=== PATIENT | female | born 1975 | race Caucasian/White ===

== ENCOUNTER 2021-11-05 14:35 | Emergency (ER) | payer OTHER, BC, SELFPAY ==
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
[2021-11-05 14:38] VITALS: BP 111/66; PULSE 92; RESP 18; TEMP 36.8; O2SAT 99
[2021-11-05] MEDS: KETOROLAC 30 MG/ML VIAL (*BKC) IV PUSH (15:38)
[2021-11-05 15:46] VITALS: BP 124/71; PULSE 69; RESP 18; O2SAT 98
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
[2021-11-05 17:24] VITALS: BP 124/73; PULSE 79; RESP 18; O2SAT 100
== END 2021-11-05 17:26 | disposition home or self-care (01) ==
PROVIDERS: Emergency Provider Emergency Medicine; PCP Internal Medicine
DX: S16.1XXA Strain of muscle, fascia and tendon at neck level, initial encounter (principal); S39.012A Strain of muscle, fascia and tendon of lower back, initial encounter; V43.52XA Car driver injured in collision with other type car in traffic accident, initial encounter
CPT/HCPCS: 72100; 72125; 96374; 99284; J1885

== ENCOUNTER 2022-02-10 09:04 | Outpatient (CLI) | payer OTHER, BC, SELFPAY ==
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
== END 2022-02-10 09:05 ==
PROVIDERS: PCP Internal Medicine; Visit Provider Internal Medicine
DX: M19.012 Primary osteoarthritis, left shoulder (principal); M75.52 Bursitis of left shoulder; M75.22 Bicipital tendinitis, left shoulder
CPT/HCPCS: 73221

== ENCOUNTER 2022-11-19 00:32 | Day surgery (SDC) | payer BC, SELFPAY ==
[2022-11-13 13:17] VITALS: BMI 24.5
--- NOTE | 2022-11-13 13:24 | PC.NURSE ---
Report to the Outpatient Waiting Room, entrance under the green pavilion located off [facility], at time _1130 on date _11/19/22_. Planned Procedure Time: _1330_. Time changes happen often and if your time is changed the preop area will call you the afternoon before. - You and your visitor will be asked to self-screen and do not enter if you have any COVID symptoms. - A mask is optional within the hospital at this time. Patients may have clear liquids (water, carbonated beverages, clear teas, apple juice) until 3 hours prior to surgery with a maximum of 20 ounces. - No food from midnight until time of surgery - Infants may have breast milk until 4 hours before surgery, formula 6 hours prior to surgery. - Children will be allowed to drink immediately following surgery. If applicable, please bring a bottle or sippy cup to assist with drinking. Juice, water, soda, and popsicles are readily available. For infants on formula, please bring formula the day of surgery. Pacifiers are allowed. Take the following medications with a SIP of water the morning of surgery: ___NONE DO NOT STOP ANY OF YOUR OTHER PRESCRIPTION MEDICATIONS PRIOR TO SURGERY ?EXCEPT THE FOLLOWING Medications to discontinue per physician NONE Date to take last dose Please no make-up, nail macedonian, hairspray, perfume, deodorant, or body powder the day of surgery. No jewelry (including any body piercings) or valuables the day of surgery, leave them at home. Please take a shower or bath the night before, or the morning of, surgery with an antibacterial soap. Wear comfortable, loose fitting clothing. Children are encouraged to wear pajamas. - Jewelry must be removed prior to entering the operating room. Rings and piercings that are not removed may be cut off. - The hospital will not accept responsibility for valuables. - Please leave all valuables, including medications, at home the day of surgery. If you are going home after surgery, a licensed motorcycle delivery driver must drive you home. - NO public transportation without another adult if you receive anesthesia. - We recommend that an adult stay with you for 24 hours following discharge. - We also recommend that you do not drive, make important decision, drink alcoholic beverages, or take any drugs that were not prescribed by your health care provider for at least 24 hours after your discharge time. For Pediatric surgeries, we recommend two adults accompany the child home. Follow any additional instructions given to you from your surgeon. If you or anyone in your household have experienced Covid symptoms in the past week, please notify your surgeon or the nurse liaison at the phone number below for possible testing. Telephone instructions given to _NILE _and asked if any additional questions and then verbalized understanding. Patient advised to call surgeon office or pre surgery nurse liaison [phone] if any additional questions.
[2022-11-19] MEDS: ACETAMINOPHEN 500 MG TABLET 1000 MG PO (12:25)
[2022-11-19] MEDS: KETOROLAC 15 MG/ML VIAL (*BKC) IV PUSH (12:25)
[2022-11-19 12:46] VITALS: BP 120/73; PULSE 70; RESP 14; TEMP 36.1; O2SAT 99
--- NOTE | 2022-11-19 12:58 | WPDHPUPDATE1 ---
History and Physical Update Update Date/Time: 11/19/22 12:58 History and Physical has been reviewed, including an updated exam of the patient. There are NO changes in the patient's condition. Risks, benefits, and alternatives have been discussed and questions answered. Patient agrees to proceed with procedure.
--- NOTE | 2022-11-19 13:19 | WPDANESEPPF ---
Anes - Initial Pre Proc Eval Procedure: Operation Date: 11/19/22 13:30 Proposed Procedures p Left Distal Clavicle Excision - Ricardo Field MD Date/Time: 11/19/22 13:19 Surgeon: Ricardo Field MD Pre Op Diagnosis: left ac arthritis Patient Data Age: 47 Gender: F Height: 1.7 m Weight: 69.3 kg Last Vital Signs Temp 36.1 C L 11/19/22 12:46 Pulse 70 11/19/22 12:46 Resp 14 11/19/22 12:46 BP 120/73 11/19/22 12:46 Pulse Ox 99 11/19/22 12:46 O2 Del Method Room Air 11/19/22 12:46 Allergies Allergy/AdvReac Type Severity Reaction Status Date / Time No Known Allergies Allergy Verified 11/19/22 12:53 Home Medications Medication Instructions Recorded Confirmed Type paroxetine HCl 12.5 mg 12.5 mg PO QAM 05/02/22 11/13/22 History tablet,extended release 24 hr (Paxil CR) Patient hx anesthesia problems: none Family hx anesthesia problems: none Results Review: All pre-operative results and documents have been reviewed as part of the pre-operative evaluation. [facility] Past Medical History Medical History (Updated 11/19/22 @ 13:19 by Tee Mora DO) Allergies Anxiety Derangement of left acromioclavicular joint Psoriasis Surgical History Surgical History (Updated 11/19/22 @ 13:19 by Tee Mora DO) History of foot surgery History of tonsillectomy Family History Family History Father Alcoholism Depression Grandparent Alcoholism Asthma Heart disease Other Cancer Social History Social History Smoking packs per day: 0.5 Smoking cigarettes per day: 10.0 Years smoked: 15 Smoking pack-years: 7.50 Smoking status: Former smoker Tobacco type: cigarettes Alcohol intake: never Substance use: never Substance use type: marijuana Other substance usage details: DAILY Lack of Transportation: No Lack of Food: Never True Current Housing: I Have Housing Concerned About Future Housing: No Difficulty Paying Gas/Electric Bills: No Difficulty Paying for Meds: No Currently Unemployed: No Education: Master's Degree or Higher Difficulty w/ Childcare or Family Care: No Living arrangements: with family Occupation/Education: occupation 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 Informed Consent: The patient's anesthetic plan and its attendant risks and benefits were discussed with the patient/family/POA. Questions were solicited and answers provided to the satisfaction of the patient/family/POA.
--- NOTE | 2022-11-19 14:31 | WPDANESPNB ---
Anes - Peripheral Nerve Block Date/Time: 11/19/22 14:31 I have discussed with the patient/family/POA the placement of a peripheral nerve block for post-operative pain management, including associated risks, benefits, complications, and side effects. Alternative methods of post-operative analgesia were detailed. Questions were solicited and answers provided to the satisfaction of the patient/family/POA. Time-Out: A pre-procedural Time-Out was completed immediately before starting the procedure and confirmed: Patient Identification, Site, Procedure, Patient Position and the Availability of Requisite Equipment. Clinical Indications: Acute post-operative pain management requested by the operative surgeon. Nerve Block Insertion Note Anes-nerve block: interscalene left Patient position: supine Skin prep: chlorhexidine Needle: 22 gauge, stimulating, insulated echogenic needle. Needle length: 50 mm Technique: ultrasound Injectate: bupivacaine 0.5% with epi 5 mcg/ml (30cc- no epi) Observations: tolerated well Complications: none Procedure start time:: 1619 Procedure end time:: 1622
[2022-11-19] MEDS: ceFAZolin 2 GM/D5W 50 ML 2 GM/50 ML BAG IVPB (16:44)
[2022-11-19] MEDS: BUPIVACAINE/EPINEPHRINE 0.5% 50 ML VIAL 10 ML INFILTRATE (17:38)
[2022-11-19 17:51] VITALS: BP 145/63; PULSE 96; RESP 18; TEMP 36.4; O2SAT 100
[2022-11-19] MEDS: LACTATED RINGERS 1,000 ML 30 ML IV CONT ×2 (17:51)
[2022-11-19 18:05] VITALS: BP 119/68; PULSE 91; RESP 20; O2SAT 100
--- NOTE | 2022-11-19 18:06 | P.OP_ITS ---
Procedure Note - Detailed Date of Procedure 11/19/22 Pre-op Diagnosis left ac arthritis Post-op Diagnosis Same Procedure Performed open left shoulder distal clavicle excision Surgeon Ricardo Field MD [employer] Lilian Chavez Anesthesia General and Regional Description of Procedure Patient was identified and proper site identified. In the preop holding area the anesthesia team performed a left upper extremity block. She was then taken to the operating room and transferred to the or table taking care to pad the torso and extremities. After general anesthetic induction and intubation, she was put in a semi beach chair position in the usual manner for a left shoulder procedure. Her head was secured taking care to neither rotate nor extend the head and neck. The[] upper extremity was prepped and draped free in usual sterile fashion. The subcutaneous tissue in the area of the incision was injected with 10 cc of 0.25% Marcaine and epinephrine solution. longitudinal incision was made extending distally over the AC joint an anterior portion the acromion. Subcutaneous tissue sharply dissected full-thickness down to the AC joint. Hemostasis was carried out throughout the procedure. Joint capsule was opened and using the microsagittal saw the last 8 millimeters of clavicle were removed. There was quite a bit of synovitis which was sharply debrided. Hemostasis was carried out. The wound was irrigated with sterile NaCl solution. The capsule was reapproximated with #2 Vicryl suture. Subcutaneous tissue reapproximated with 3-0 Monocryl and then a 4-0 Prolene subcuticular stitches Steri-Strips were used for the skin. Sterile dressing was applied. There were no known intraoperative complications, and perioperative antibiotics were administered. Estimated Blood Loss -5.0 Drains No Packing No Pathology None sent Complications No immediate complications Condition Stable Disposition PACU [facility] Billing Surgery - Charge Forward: Surgery Billing ([id number])
[2022-11-19] MEDS: ONDANSETRON INJ 4 MG/2 ML VIAL IV PUSH (18:10)
[2022-11-19 18:20] VITALS: BP 107/71; PULSE 83; RESP 16; O2SAT 100
[2022-11-19 18:30] VITALS: BP 142/82; PULSE 90; RESP 16
[2022-11-19] MEDS: SCOPOLAMINE 1.5 MG PATCH TRANSDERM (18:48)
[2022-11-19 19:00] VITALS: BP 130/78; PULSE 86
== END 2022-11-19 19:22 | disposition home or self-care (01) ==
PROVIDERS: PCP Internal Medicine; Visit Provider Orthopaedic Surgery
PROC: (CPT 23420; principal; 2022-11-19 13:30)
DX: M19.012 Primary osteoarthritis, left shoulder (principal); G89.18 Other acute postprocedural pain; F41.9 Anxiety disorder, unspecified; F12.90 Cannabis use, unspecified, uncomplicated
CPT/HCPCS: 23120; 64415; A4565; A9270; J0330; J0690; J1100; J1885; J2250; J2405; J2704; J3010; J7120

== ENCOUNTER 2023-03-20 16:11 | Emergency (ER) | payer BC, SELFPAY ==
[2023-03-20 16:23] VITALS: BP 133/76; PULSE 97; RESP 18; TEMP 36.8; O2SAT 100
--- NOTE | 2023-03-20 19:18 | ED.SKABFB ---
HPI - Skin/Abscess/Foreign Bdy General Chief complaint: Skin/Abscess/Foreign Body Stated complaint: abscess on buttock Time Seen by Provider: 03/20/23 18:57 History of Present Illness HPI narrative: This is a 47-year-old female with past medical history of psoriasis and hemorrhoids who presents with a lump that she has noticed after Botox for the past 2 weeks. She states that this feels different than her previous hemorrhoids and was initially painful with just sitting but has become painful with walking. She denies any fevers or throat. She has not noted any drainage, neither bloody nor purulent. She has been trialing hemorrhoid suppositories as well as witch rashard but does not find them to be helping. She has also been taking ibuprofen at night although this is more for her chronic back pain. She rates this as a pain of 8 or 9 out of 10 in severity. Her last bowel movement was this morning she is generally pretty regular denies any constipation or straining. She did note she had some diarrhea a few days ago but attributed this to intake of dairy and has since returned to having normal formed stools. She denies any bloody stools. She does apply topical medication to her psoriasis but does not on immunosuppressive p.o. medication. She does say that she also applies coconut oil to the parts of her skin given the psoriasis. Related Data Home Medications Medication Instructions Recorded Confirmed paroxetine HCl 12.5 mg 12.5 mg PO QAM 05/02/22 01/01/23 tablet,extended release 24 hr (Paxil CR) ibuprofen 200 mg capsule 200 mg PO Q6H PRN 12/05/22 01/01/23 Allergies Allergy/AdvReac Type Severity Reaction Status Date / Time No Known Allergies Allergy Verified 03/20/23 18:45 [facility] Past Medical History Medical History Allergies Anxiety Psoriasis Surgical History Surgical History Derangement of left acromioclavicular joint Open left DCE November 19, 2022 History of foot surgery History of tonsillectomy Family History Family History Father Alcoholism Depression Grandparent Alcoholism Asthma Heart disease Other Cancer Social History Social History Smoking packs per day: 0.5 Smoking cigarettes per day: 10.0 Years smoked: 15 Smoking pack-years: 7.50 Smoking status: Former smoker Tobacco type: cigarettes Alcohol intake: never Substance use: never Substance use type: marijuana Other substance usage details: DAILY Lack of Transportation: No Lack of Food: Never True Current Housing: I Have Housing Concerned About Future Housing: No Difficulty Paying Gas/Electric Bills: No Difficulty Paying for Meds: No Currently Unemployed: No Education: Master's Degree or Higher Difficulty w/ Childcare or Family Care: No Living arrangements: with family Occupation/Education: occupation Additional occupation/education comments: teacher Exam Const: General: healthy appearing, no acute distress and alert Nutritional Appearance: well nourished Orientation/consciousness: patient oriented x3 Limitations: no limitations HENMT: Head: normal to inspection Ears: external ears normal (Gross auditory acuity intact.) Face/Nose/Sinus: Normal external nose present Resp: Effort & Inspection: normal respiratory effort Cardio: Rate: regular rate GI: Inspection: non-distended GI Palp: Yes Soft to palpation Rectal Exam: normal sphincter tone, No Abnormal stool present, No fecal impaction and No hemorrhoids Other: Abscess does not extend to anal verge and rectal exam is normal without evidence of extension into the rectal vault as there is are no palpable masses on rectal exam. Skin: General skin exam: normal color Other: Patient does have scattered le
[2023-03-20] MEDS: HYDROcodone/acetaminophen (*CRX) 5-325 MG TABLET 1 TAB PO (19:47)
[2023-03-20] MEDS: LIDOCAINE HCL 1% LOCAL INJ 10 ML VIAL 5 ML INFILTRATE (19:47)
[2023-03-20 20:15] VITALS: BP 113/70; PULSE 69; RESP 16; O2SAT 100
== END 2023-03-20 20:17 | disposition home or self-care (01) ==
PROVIDERS: Emergency Provider Student in an Organized Health Care Education/Training Program; PCP Internal Medicine
DX: L05.01 Pilonidal cyst with abscess (principal); Z87.891 Personal history of nicotine dependence
CPT/HCPCS: 10080; 99283; A9270